=== PATIENT | male | born 1980 | race Caucasian/White ===

== ENCOUNTER 2019-04-03 15:50 | Outpatient (REF) | payer MEDICAID, SELFPAY ==
[2019-04-03 17:23] LABS: Viscosity Semen Droplets; Volume Semen 2.5 (2-5)
[2019-04-03 17:25] LABS: Sperm Immotility 33 % (50-60); Sperm Non-Progressive Motility 4 % (5-10); Sperm Progressive Motility 63 % (31-34)
[2019-04-03 17:26] LABS: Pathology Referral Yes; RBC Semen 0; White Blood Count Semen 0-4 /hpf
[2019-04-03 17:29] LABS: Side 1 58; Side 2 59; Side WITHIN 10% 2; Sperm Count 58.5 mill/mL
== END 2019-04-03 15:51 | disposition home or self-care (01) ==
LOC: LAB 15:50
PROVIDERS: Visit Provider Obstetrics & Gynecology
DX: N46.9 Male infertility, unspecified (principal)
CPT/HCPCS: 80500; 89320

== ENCOUNTER 2020-08-24 17:00 | Outpatient (CLI) | payer BC, MEDICAID, SELFPAY ==
--- NOTE | 2020-08-24 17:30 | MR_ITS ---
WS: [id number] MRI CERVICAL SPINE NONCONTRAST HISTORY: M79.2 - Neuralgia and neuritis, unspecified COMPARISON: 11/14/2016 Technique: Multiplanar, multisequence noncontrast imaging of the cervical spine. Normal posterior cervical alignment. Disc desiccation and disc bulging at C4-5 and C5-6. Signal within the cervical cord is normal. Visualized posterior fossa is unremarkable. Craniocervical junction, C1 and C2 relationship, odontoid process and soft tissues are normal. C2-C3: Normal. C3-C4: Small foraminal osteophytes without significant stenosis. Slightly greater osteophyte encroach ment on the LEFT. C4-C5: Diffuse disc bulging and osteophytic ridging with a central disc protrusion. Disc protrusion h as slightly decreased in size but there is still contact on the ventral cord with minimal deformity. Mild central and bilateral foraminal stenosis. C5-C6: Mild annular disc bulge with a central disc protrusion. Disc protrusion has slightly increased in size since the prior study. Small foraminal osteophytes without stenosis. C6-C7: Mild osteophytic ridging with no stenosis. C7-T1: Normal. Paraspinal soft tissue are normal. MR/MR cervical spin wo con* [id number] IMPRESSION: 1. Small central disc protrusion at C4-5 with mild contact on the cord and def ormity. Disc has decreased in size since the prior examination. 2. Mild central and bilateral foraminal stenosis at C4-5. 3. New small disc protrusion centrally at C5-6 without significant stenosis. N ear contact on the ventral cord. 4. Very mild LEFT foraminal narrowing at C3-4.
== END 2020-08-24 17:01 | disposition home or self-care (01) ==
LOC: RADSHAW 17:03
PROVIDERS: PCP Nurse Practitioner Family; Visit Provider Orthopaedic Surgery
DX: M79.2 Neuralgia and neuritis, unspecified (principal); M50.221 Other cervical disc displacement at C4-C5 level; M48.02 Spinal stenosis, cervical region
CPT/HCPCS: 72141

== ENCOUNTER 2020-10-04 11:49 | Emergency (ER) | payer BC, MEDICAID, SELFPAY ==
[2020-10-04 11:53] VITALS: BP 131/93; PULSE 98; RESP 17; TEMP 36.8; O2SAT 98; BMI 27.8
--- NOTE | 2020-10-04 11:59 | W.ED.GENADLT ---
HPI - General Adult General: Chief complaint: General Medical Stated complaint: COUGHING UP BLOOD Time Seen by Provider: 10/04/20 11:58 History of Present Illness: HPI narrative: Mr. Diaz is a 40-year-old gentleman with significant past medical history of tobaccoism who presents to the emergency department due to bloody cough. 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 Approximately 1 month ago he had a similar episode. Today he had another single episode with bright red blood. There is no associated evidence of hypotension. No chest pain. Overall hemoptysis has occurred very rarely and is always associated with cough. No other specific exacerbating relieving factors that he can think of. No changes in health. No history of blood clots or recent travel. Review of Systems General: Reports: 10 or more systems reviewed and unremarkable except in HPI and below Narrative: CONSTITUTIONAL: denies fever, fatigue, weakness EYES - denies pain, denies loss of vision EARS - denies ear issues. NOSE - denies congestion or rhinorrhea. THROAT - denies sore throat or difficulty swallowing. CARDIOVASCULAR -mild associated chest pain and no palpitations RESPIRATORY -see HPI GASTROINTESTINAL - denies abdominal pain, no nausea vomiting, no changes in bowel habits GENITOURINARY - denies dysuria or urinary frequency MUSCULOSKELETAL- denies deformity or pain SKIN - denies rashes or new changed skin lesions NEUROLOGIC - denies focal weakness or sensory changes HEMATOLOGIC/LYMPHATIC - denies easy bruising or lymphadenopathy. [facility] ED PFSH: Social History Smoking and tobacco status: current every day smoker Alcohol intake: never Physical Exam Narrative: EXAM NARRATIVE: GENERAL/CONSTITUTIONAL - well-appearing. No acute distress. Patient presents more or less covered with coal soot Eyes - PERRL, no conjunctival injection ENMT - Atraumatic external nose and ears. Moist mucous membranes NECK - supple. trachea midline CARDIOVASCULAR - regular rate and rhythm. RESPIRATORY -coarse to auscultation bilaterally. No retractions or accessory muscle use. ABDOMEN/GI - Nontender/Nondistended. No tenderness to percussion or evidence of peritonitis MSK - Extremities without obvious deformity or tenderness to palpation SKIN - Warm, Dry NEURO - alert and appropriately oriented. strength and sensation intact. Moves all extremities equally. PSYCH - Appropriate mood and affect Course ED course: - Patient was seen and evaluated by me at bedside - Patient placed on cardiac monitors, IV access obtained - Initial evaluation notable for no acute distress, nontoxic appearance. Patient covered in coal soot - Imaging notable for no lobar consolidation - Upon serial reexamination after treatment the patient was similar - Based on patient history, evaluation, labs, and imaging as interpreted the most likely cause of the patient's condition is environmental exposure in the context of known tobaccoism likely reflecting COPD exacerbation. Patient is low risk by heart score - The results of ED evaluation were discussed with the patient including prescriptions and/or symptomatic cares including appropriate and responsible use, followup plan, and return precautions. The patient verbalized understanding and felt safe for discharge. - Patient discharged in satisfactory condition. Vital Signs: Vital signs: Vital Signs Temperature 98.2 F 10/04/20 11:53 Pulse Rate 77 10/04/20 13:24 Respiratory Rate 17 10/04/20 11:53 Blood Pressure 120/74 10/04/20 13:24 Pulse Oximetry 94 10/04/20 14:41 [facility] - General Adult Medical Records: Attestation: I reviewed the patient's medical records. Lab Data: Attestation: I reviewed the patient's lab results. Discharge Plan Discharge Patient Disposition: Home Clinical Impression: Cough with hemoptysis, COPD exacerbation Condition: Stable Prescriptions: New prednisone 50 mg tablet 50 mg PO DAILY 5 Days RF: 0 doxycycline hyclate 100 mg tablet 100 mg PO BID 10 Days Qty: 20 RF: 0 albuterol sulfate 90 mcg/actuation HFA aerosol inhaler 2 inh inhalation Q8H PRN (Reason: shortness of breath or wheezing) Qty: 8.5 RF: 0 No Action tramadol 50 mg tablet 50 mg PO BID PRN (Reason: Pain) RF: 0 meloxicam 15 mg tablet 15 mg PO QAM RF: 0 chlorzoxazone 500 mg tablet 250 mg PO BEDTIME RF: 0 Tylenol Extra Strength 500 mg Tablet 1,000 mg PO Q4H PRN (Reason: Pain) RF: 0 Vitamin C 500 mg Tablet 500 mg PO DAILY RF: 0 Discharge Orders: Discharge ED (Routine); Ordered 10/04/20 Ordered By: James Melgar Referrals: Michelle Arrieta FNP [Primary Care Provider] - Discharge Diet: Usual diet Discharge Activity: Resume usual activity Patient Instructions: Hemoptysis, Chronic Obstructive Pulmonary Disease (ED) Activity Restrictions/Additional Instructions: Thank you for visiting the emergency department. You were seen and evaluated for coughing up blood. The exact cause of this is unclear however may be related to a condition called COPD and exacerbation of this condition. This is likely multifactorial from smoking and environmental exposures. Please ensure that you are always using protective equipment while working. We encourage cessation of smoking. Please return to the emergency department if you experience worsening of your current symptoms, chest pain, shortness of breath, or anything else that you are concerned about and feel needs emergency department evaluation. Stand Alone Forms: Work/School Release Coding Level of Care Code ED Distribution Lead for Lashon Osborne
[2020-10-04 12:03] VITALS: BP 127/80; PULSE 98; O2SAT 98
--- NOTE | 2020-10-04 12:35 | XRR_ITS ---
PROCEDURE INFORMATION: Exam: XR Chest Exam date and time: 10/04/2020 12:35 PM Age: 40 years old Clinical indication: Cough with hemorrhage; Patient HX: MR. Diaz is a 40-year-old gentleman with significant past medical history of tobaccoism who presents to the emergency department due to bloody cough. 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 Approximately 1 month ago he had a similar episode. Today he had another single episode with bright red blood. There is no associated evidence of hypotension. No chest pain. Overall hemoptysis has occurred very rarely and is always associated with cough. ; Additional info: Coughing blood TECHNIQUE: Imaging protocol: XR of the chest. Views: 2 views. COMPARISON: MR cervical spin wo con* [id number] 08/24/2020 5:18 PM FINDINGS: Lungs: Hyperinflation and mild interstitial prominence. No acute airspace disease. Pleural spaces: No pleural effusion. Heart/Mediastinum: No cardiomegaly. Bones/joints: Mild degenerative change. XR/XR chest 2V* [id number] IMPRESSION: Hyperinflation and mild interstitial prominence.
[2020-10-04 13:24] VITALS: BP 120/74; PULSE 77; O2SAT 97
[2020-10-04 14:41] VITALS: O2SAT 94
== END 2020-10-04 14:45 | disposition home or self-care (01) ==
PROVIDERS: Emergency Provider Emergency Medicine; PCP Nurse Practitioner Family
DX: R04.2 Hemoptysis (principal); J44.1 Chronic obstructive pulmonary disease with (acute) exacerbation; F17.210 Nicotine dependence, cigarettes, uncomplicated
CPT/HCPCS: 71046; 99282

== ENCOUNTER 2022-01-16 00:41 | Emergency (ER) | payer BC, MEDICAID, SELFPAY ==
[2022-01-16 00:48] VITALS: BP 135/94; PULSE 93; RESP 16; TEMP 36.3; O2SAT 99; BMI 29.5
--- NOTE | 2022-01-16 00:58 | ED_ITS ---
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 Patient appears in mild to moderate pain. Patient appears nontoxic. Patient has had previous episodes of similar illness. Patient denies routine medications. Associated symptoms: Deny fever(s) Review of Systems Const: Denies: fever(s) Card: Denies: chest pain Resp: Denies: dyspnea Musc: Reports: back pain PFS ED PFSH: Social History Smoking and tobacco status: current every day smoker Alcohol intake: never Physical Exam Const: COMMON NORMALS: alert HENMT: COMMON NORMALS: normocephalic HEAD & SCALP: normocephalic Neck/C-Spine: COMMON NORMALS: full ROM and no meningeal signs Chest: COMMONS NORMALS: normal palpation of entire chest wall Resp: COMMON NORMALS: normal respiratory effort Cardio: COMMON NORMALS: regular rate RATE: regular rate Back/Pelvis: THORACIC SPINE/UPPER BACK: Yes paraspinal muscle tenderness LUMBAR SPINE/LOWER BACK: Yes paraspinal muscle tenderness Neuro: SENSORIUM/ORIENTATION: Yes alert MENINGEAL SIGNS: Yes no meningeal signs Skin: COMMON NORMALS: turgor normal GENERAL SKIN EXAM: turgor normal Course Vital Signs: Vital signs: Vital Signs Temperature 97.3 F L 01/16/22 00:48 Pulse Rate 93 01/16/22 00:48 Respiratory Rate 16 01/16/22 00:48 Blood Pressure 135/94 01/16/22 00:48 Pulse Oximetry 99 01/16/22 00:48 Oxygen Delivery Me thod 01/16/22 00:48 MDM - Back Pain/Injury Medical Decision Making Patient presents with acute back injury. Patient was at work at shoveling some charcoal when he felt a pull and strain in his left mid back. On exam patient has muscle tenderness in the left mid back with no central or midline spinal tenderness. Vital signs are normal. Differential diagnosis includes intervertebral disc disease, facet arthropathy, muscle strain. Exam and explanation of injury suggests a strain of the paraspinous muscles. Reviewed exam with patient with recommendations for treatment and follow-up. Patient reported understanding and agreed to plan. Discharge Plan Discharge Patient Disposition: Home Clinical Impression: Acute thoracic myofascial strain Qualifiers: Encounter type: initial encounter Qualified Code(s): S29.019A - Strain of muscle and tendon of unspecified wall of thorax, initial encounter Condition: Stable Prescriptions: New diclofenac sodium 75 mg tablet,delayed release (DR/EC) 75 mg PO BID Qty: 14 0RF No Action tramadol 50 mg tablet 50 mg PO BID PRN (Reason: Pain) meloxicam 15 mg tablet 15 mg PO QAM methylprednisolone [Medrol (Kehinde)] 4 mg tablets,dose pack See Rx Instructions PO PER PKG DIR 6 Days Qty: 21 0RF Rx Instructions: PO PER PKG DIR chlorzoxazone 500 mg tablet 250 mg PO BEDTIME Tylenol Extra Strength 500 mg Tablet 1,000 mg PO Q4H PRN (Reason: Pain) Vitamin C 500 mg Tablet 500 mg PO DAILY albuterol sulfate 90 mcg/actuation HFA aerosol inhaler 2 inh inhalation Q8H PRN (Reason: shortness of breath or wheezing) Qty: 8.5 0RF Discharge Orders: Discharge ED (Routine); Ordered 01/16/22 Ordered By: Javier Jc Referrals: Michelle Arrieta FNP [Primary Care Provider] - Discharge Diet: Usual diet Discharge Activity: Increase activity as tolerated Patient Instructions: Thoracic Back Strain (ED) Activity Restrictions/Additional Instructions: Activity as tolerated. Gentle stretching and range of motion exercises. Avoid overexertion or heavy lifting. Use proper body mechanics when lifting. Use ice or heat to the area for further pain relief. Take diclofenac 75 mg 1 tablet twice a day for the next 7 days. Do not use meloxicam, ibuprofen, or naproxen while taking diclofenac. Use Tylenol as needed for further pain relief. Follow-up with primary care for further instruction. Return to ED for new concerns or worsening symptoms such as high fever greater than 100.4, difficulty breathing, loss of bowel or bladder control. Coding Level of Care Code ED Black Leather Trimmer for Lashon Osborne
[2022-01-16] MEDS: ketorolac 30 mg/mL INJ IM (01:16)
[2022-01-16 01:23] VITALS: RESP 16
== END 2022-01-16 01:20 | disposition home or self-care (01) ==
PROVIDERS: Emergency Provider Nurse Practitioner Family; PCP Nurse Practitioner Family
DX: S29.019A Strain of muscle and tendon of unspecified wall of thorax, initial encounter (principal); X50.1XXA Overexertion from prolonged static or awkward postures, initial encounter; Y93.H1 Activity, digging, shoveling and raking; Y92.89 Other specified places as the place of occurrence of the external cause; Y99.0 Civilian activity done for income or pay
CPT/HCPCS: 96372; 99284; J1885

== ENCOUNTER 2022-05-16 02:08 | Emergency (ER) | payer BC, MEDICAID, SELFPAY ==
[2022-05-16 02:14] VITALS: BP 136/79; PULSE 80; RESP 16; TEMP 36.7; O2SAT 97; BMI 29.7
--- NOTE | 2022-05-16 02:19 | XRR_ITS ---
PROCEDURE INFORMATION: Exam: XR Right Wrist Exam date and time: 05/16/2022 2:26 AM Age: 41 years old Clinical indication: Injury or trauma; Blunt trauma (contusions or hematomas); Right; Patient HX: Arrival via EMS for fall. Fell backwards onto concrete from 3 step flight of stairs. C/O upper back and RT wrist pain. TECHNIQUE: Imaging protocol: Radiologic exam of the right wrist. Views: 3 or more views. COMPARISON: No relevant prior studies available. FINDINGS: Bones/joints: Normal. Soft tissues: Normal. XR/XR wrist RT min 3V* [id number] IMPRESSION: No acute findings.
--- NOTE | 2022-05-16 02:19 | XRR_ITS ---
PROCEDURE INFORMATION: Exam: XR Thoracic Spine Exam date and time: 05/16/2022 2:26 AM Age: 41 years old Clinical indication: Injury or trauma; Blunt trauma (contusions or hematomas); Patient HX: Arrival via EMS for fall. Fell backwards onto concrete from 3 step flight of stairs. C/O upper back and RT wrist pain. TECHNIQUE: Imaging protocol: Radiologic exam of the thoracic spine. Views: 3 views. COMPARISON: CR XR chest 2V* [id number] 10/04/2020 1:24 PM FINDINGS: Bones/joints: There is mild, diffuse disc space narrowing. There is normal vertebral body alignment. There are normal vertebral body heights. The pedicles are intact. No fracture. Soft tissues: Unremarkable. XR/XR thoracic spine 3V* [id number] IMPRESSION: No fracture.
--- NOTE | 2022-05-16 02:19 | ED_ITS ---
HPI - Fall General: Chief Complaint: Fall Stated Complaint: Fallen\Wrist and Back Pain Time Seen by Provider: 05/16/22 02:10 Source: patient Mode of arrival: ambulatory Limitations: no limitations History of Present Illness: 41-year-old male states that he fell tonight at work roughly 2 hours ago he states he fell backwards onto concrete he has some thoracic back pain along with right wrist pain he rates his pain a 2 out of 10 he is able to ambulate here he denies any other injuries denies hitting his head denies any neck pain. Associated symptoms-after fall: Denies abdominal pain, chest pain or headache(s) Review of Systems Const: Denies: fever(s), chills, body aches or change in appetite Eyes: Denies: blurry vision or eye discomfort ENMT: Denies: throat pain or dental pain Card: Denies: chest pain Resp: Denies: dyspnea GI: Denies: abdominal pain, nausea, vomiting or diarrhea : Denies: dysuria Musc: Reports: back pain and extremity pain Skin/Breast: Denies: rash Neuro: Denies: headache(s) Psych: Denies: depression Amish/Lymph: Denies: easy bruising All/Imm: Denies: urticaria PFSH ED PFSH: Medical History Degenerative disc disease, cervical Social History Smoking and tobacco status: current every day smoker Alcohol intake: never Physical Exam Const: COMMON NORMALS: no acute distress, patient oriented x3 and healthy appearing HENMT: COMMON NORMALS: normocephalic and atraumatic HEAD & SCALP: normocephalic and atraumatic Eye: COMMON NORMALS: Equal, round and reactive pupils present and EOMs intact bilaterally PUPIL: Yes Equal, round and reactive pupils present Neck/C-Spine: COMMON NORMALS: full ROM and supple Chest: COMMONS NORMALS: normal inspection of the chest and normal palpation of entire chest wall Resp: COMMON NORMALS: normal respiratory effort, No retractions, No use of accessory muscles and clear to auscultation bilaterally AUSCULTATION: clear to auscultation bilaterally Cardio: COMMON NORMALS: regular rate, regular rhythm and No murmurs present (Cardio) RATE: regular rate RHYTHM: regular rhythm GI: COMMON NORMALS: Normal to inspection, nondistended, normoactive bowel sounds present, Soft to palpation, non-tender and no masses PALPATION: Yes Soft to palpation Back/Pelvis: OTHER: Paraspinal tenderness over thoracic spine no midline tenderness Extremity: COMMON NORMALS: full ROM NARRATIVE EXTREMITY EXAM: Slight tenderness over wrist no obvious deformity full range of motion Neuro: COMMON NORMALS: patient oriented x3, moves all extremities and no focal motor deficits Psych: COMMON NORMALS: mental status grossly normal, Normal thought process present and cooperative THOUGHT PROCESS: Normal thought process present Skin: COMMON NORMALS: no rashes or lesions noted and no wounds GENERAL SKIN EXAM: no rashes or lesions noted Course Vital Signs: Vital signs: Vital Signs Temperature 98.1 F 05/16/22 02:14 Pulse Rate 80 05/16/22 02:14 Respiratory Rate 16 05/16/22 02:14 Blood Pressure 136/79 05/16/22 02:14 Pulse Oximetry 97 05/16/22 02:14 Oxygen Delivery Me thod 05/16/22 02:14 MDM - Fall Medical Decision Making Patient presents with wrist and back contusion from a fall x-rays here are normal he is well-appearing here he is stable for discharge he is to follow-up with PCP and return if worsening Discharge Plan Discharge Patient Disposition: Home Clinical Impression: Fall, Contusion Condition: Stable Prescriptions: No Action tramadol 50 mg tablet 50 mg PO BID PRN (Reason: Pain) meloxicam 15 mg tablet 15 mg PO QAM methylprednisolone [Medrol (Kehinde)] 4 mg tablets,dose pack See Rx Instructions PO PER PKG DIR 6 Days Qty: 21 0RF Rx Instructions: PO PER PKG DIR chlorzoxazone 500 mg tablet 250 mg PO BEDTIME Tylenol Extra Strength 500 mg Tablet 1,000 mg PO Q4H PRN (Reason: Pain) Vitamin C 500 mg Tablet 500 mg PO DAILY albuterol sulfate 90 mcg/actuation HFA aerosol inhaler 2 inh inhalation Q8H PRN (Reason: shortness of breath or wheezing) Qty: 8.5 0RF diclofenac sodium 75 mg tablet,delayed release (DR/EC) 75 mg PO BID Qty: 14 0RF Discharge Orders: Discharge ED (Routine); Ordered 05/16/22 Ordered By: Crystal Kaplan Referrals: Michelle Arrieta FNP [Primary Care Provider] - 1-3 days Discharge Diet: Advance as tolerated Discharge Activity: Resume usual activity Patient Instructions: Contusion in Adults (ED) Coding Level of Care Code ED Wool Hat Forming Machine Tender for Lashon Osborne
[2022-05-16] MEDS: naproxen 500 mg Tablet PO (02:28)
== END 2022-05-16 02:58 | disposition home or self-care (01) ==
PROVIDERS: Emergency Provider Emergency Medicine; PCP Nurse Practitioner Family
DX: S60.211A Contusion of right wrist, initial encounter (principal); S20.229A Contusion of unspecified back wall of thorax, initial encounter; W19.XXXA Unspecified fall, initial encounter; Y99.0 Civilian activity done for income or pay; F17.210 Nicotine dependence, cigarettes, uncomplicated
CPT/HCPCS: 72072; 73110; 99283

== ENCOUNTER 2022-12-31 02:22 | Emergency (ER) | payer BC, MEDICAID, SELFPAY ==
[2022-12-31 02:36] VITALS: BP 157/95; PULSE 84; RESP 16; TEMP 36.6; O2SAT 100; BMI 28.3
[2022-12-31] MEDS: oxyCODONE-APAP 5-325 mg Tablet 2 TAB PO (03:27)
--- NOTE | 2022-12-31 04:14 | W.ED.BACK ---
HPI - Back Pain/Injury General: Chief Complaint: Back Pain/Injury Stated Complaint: back pain Time Seen by Provider: 12/31/22 03:06 History of Present Illness: 42-year-old male with history of chronic lumbar and thoracic back pain. He presents with an increase in his back pain over the last several days. He notes that he usually takes tramadol, but has been out of his tramadol for several days. He has been using Tylenol at home with some relief. He also is on meloxicam. He denies any radicular pain. No weakness. No saddle anesthesia or loss of control of bowel or bladder function. Associated symptoms: Deny abdominal pain, fever(s) or nausea Review of Systems Const: Denies: fever(s) Card: Denies: chest pain Resp: Denies: dyspnea GI: Denies: abdominal pain or nausea PFSH ED PFSH: Medical History Degenerative disc disease, cervical Social History Smoking and tobacco/nicotine status: current every day tobacco/nicotine user Alcohol intake: never Substance/Drug Use: current Physical Exam Const: COMMON NORMALS: no acute distress GENERAL APPEARANCE: cooperative; not ill appearing and not frail appearing HENMT: COMMON NORMALS: normocephalic, atraumatic and Normal external nose present HEAD & SCALP: normocephalic and atraumatic FACE & SINUS: normal facial exam and face symmetric NOSE: Normal external nose present Eye: COMMON NORMALS: Equal, round and reactive pupils present and EOMs intact bilaterally PUPIL: Yes Equal, round and reactive pupils present Neck/C-Spine: GENERAL: Yes trachea midline Chest: CHEST: Yes Symmetrical chest wall rise Resp: COMMON NORMALS: normal respiratory effort, No retractions, No use of accessory muscles and clear to auscultation bilaterally AUSCULTATION: clear to auscultation bilaterally Cardio: COMMON NORMALS: regular rate and regular rhythm RATE: regular rate RHYTHM: regular rhythm GI: COMMON NORMALS: Normal to inspection, nondistended, normoactive bowel sounds present Extremity: COMMON NORMALS: no pedal edema Neuro: MAIA COMA SCALE: document GCS findings Maia coma scale eye opening: Spontaneous Maia coma scale verbal response: Orientated Maia coma scale motor response: Obey commands Home coma scale total score: 15 SENSORY EXAM: Yes extremities (intact) Psych: COMMON NORMALS: speech normal SPEECH: Yes normal speech Skin: COMMON NORMALS: no rashes or lesions noted GENERAL SKIN EXAM: no rashes or lesions noted Course Vital Signs: Vital signs: Vital Signs Temperature 97.9 F 12/31/22 02:36 Pulse Rate 84 12/31/22 02:36 Respiratory Rate 16 12/31/22 02:36 Blood Pressure 157/95 12/31/22 02:36 Pulse Oximetry 100 12/31/22 02:36 Oxygen Delivery Me thod Room Air 12/31/22 02:36 MDM - Back Pain/Injury Medical Decision Making Chronic pain. No new symptoms. Will be given a prescription for a few tramadol until he can get into his doctor to refill. He was warned that this is the only time he will get refills for medicine for chronic pain. No radiology studies performed this visit Discharge Plan Discharge Patient Disposition: Home Clinical Impression: Thoracic back pain, Lumbar spondylosis Condition: Stable Prescriptions: Continued tramadol 50 mg tablet 50 mg PO BID PRN (Reason: Pain) Qty: 7 0RF No Action meloxicam 15 mg tablet 15 mg PO QAM methylprednisolone [Medrol (Kehinde)] 4 mg tablets,dose pack See Rx Instructions PO PER PKG DIR 6 Days Qty: 21 0RF Rx Instructions: PO PER PKG DIR chlorzoxazone 500 mg tablet 250 mg PO BEDTIME Tylenol Extra Strength 500 mg Tablet 1,000 mg PO Q4H PRN (Reason: Pain) Vitamin C 500 mg Tablet 500 mg PO DAILY albuterol sulfate 90 mcg/actuation HFA aerosol inhaler 2 inh inhalation Q8H PRN (Reason: shortness of breath or wheezing) Qty: 8.5 0RF diclofenac sodium 75 mg tablet,delayed release (DR/EC) 75 mg PO BID Qty: 14 0RF Discharge Orders: Discharge ED (Routine); Ordered 12/31/22 Ordered By: Hilton Coon Referrals: Michelle Arrieta FNP [Primary Care Provider] - 1-3 days Patient Instructions: Back Pain (ED), Opioid Safety, Pain Management Activity Restrictions/Additional Instructions: See your doctor this week. You will not be able to continue to get pain medication for chronici conditions through the ER, as that is our policy. Coding Level of Care Code ED Dial Screw Assembler for Lashon Osborne
== END 2022-12-31 03:29 | disposition home or self-care (01) ==
PROVIDERS: Emergency Provider Emergency Medicine; PCP Nurse Practitioner Family
DX: M54.6 Pain in thoracic spine (principal); M47.816 Spondylosis without myelopathy or radiculopathy, lumbar region; Z72.0 Tobacco use
CPT/HCPCS: 99283